=== PATIENT | male | born 2005 | race Two or more races ===

== ENCOUNTER 2024-12-24 18:57 | Emergency (ER) | payer OTHER ==
[~2024-12-24] VITALS: Ht 190.5 cm; Wt 131.1 kg
[2024-12-24 19:08] VITALS: TEMP 98.2
[2024-12-24] MEDS: ANUSOL HC 25 MG SUPP PR STA (22:17)
[2024-12-24 22:57] VITALS: O2SAT 97
[2024-12-24 23:00] VITALS: BP 124/70
[2024-12-24] MEDS ORDERED: ANUS25SU PR (23:11)
[2024-12-24] MEDS ORDERED: COLA100C5 PO (23:11)
== END 2024-12-24 23:41 | disposition home or self-care (01) ==
LOC: M ED 18:57
DX: K62.5 Hemorrhage of anus and rectum (principal); K64.9 Unspecified hemorrhoids; K59.00 Constipation, unspecified; Z79.899 Other long term (current) drug therapy